=== PATIENT | male | born 1995 | race Caucasian/White ===

== ENCOUNTER 2024-10-13 17:09 | Emergency (ER) | payer BC, SELFPAY ==
[2024-10-13 17:23] VITALS: BP 119/80
[2024-10-13 18:00] LABS: ALT (SGPT) 28 U/L (0-50); AST (SGOT) 30 U/L (17-59); Albumin 4.8 g/dl (3.5-5.0); Alkaline Phosphatase 54 U/L (38-126); Calcium 9.5 mg/dl (8.4-10.2); Carbon Dioxide 33 mmol/L (22-30); Chloride 104 mmol/L (98-107); Glucose 105 mg/dl (70-99); Lipase 50 U/L (23-300); Potassium 4.6 mmol/L (3.5-5.1); Sodium 139 mmol/L (135-145); Total Bilirubin 1.4 mg/dl (0.2-1.3); Total Protein 7.8 g/dl (6.3-8.2)
[2024-10-13 18:03] LABS: % Lymphocytes 6.6 % (20.5-51.1); % Neutrophils 66.9 % (42.2-75.2); Hematocrit 47.3 % (39.0-52.0); Hemoglobin 16.9 g/dL (13.0-18.0); Mean Corp Hgb Conc. 35.7 g/dL (33.0-37.0); Mean Corpuscular Hgb 31.5 pg (27.0-31.0); Mean Corpuscular Volume 88.1 fL (80.0-94.0); Mean Platelet Volume 9.8 fL (7.4-10.4); Platelet Count 211 10^3/uL (130-400); Red Blood Cell Count 5.37 10^6/uL (4.70-6.10); White Blood Cell Count 11.1 10^3/uL (4.8-10.8)
[2024-10-13 18:04] LABS: % Basophils 0.7 % (0-2); % Eosinophils 17.7 % (0-6); % Immature Granulocytes 0.4 % (0-0.5); % Monocytes 7.7 % (1.7-9.3); Absolute Basophils 0.1 10^3/uL (0-0.2); Absolute Immature Granulocytes 0.1 10^3/uL (0-0.05); Absolute Lymphocytes 0.7 10^3/uL (1.2-3.4); Absolute Monocytes 0.9 10^3/uL (0.1-0.6); Absolute Neutrophils 7.4 10^3/uL (1.4-6.5); Nucleated Red Blood Cells % 0 % (-)
[2024-10-13 18:10] LABS: Blood Urea Nitrogen 20 mg/dl (9-20); eGFR > 60.00
--- NOTE | 2024-10-13 20:15 | ED.GENMED ---
History of Present Illness
General
Chief Complaint: Abdominal Pain
Time Seen by Provider: 10/13/24 20:15
History of Present Illness
History of Present Illness:
TIME OF INITIAL ENCOUNTER: 8:15 PM
HPI: The patient presents with abdominal discomfort described as diffuse. This had been associated with nausea. Today he had more significant vomiting and diarrhea. He has a history of migraines and recently had his amitriptyline increased from
30 mg to 40 mg. His symptoms seem to start around the increase in this dose. He contacted his doctors and they did agree for him to go back down on the dose now.
EXAM:
GENERAL: Well appearing in no distress, athletic build, healthy in appearance
HEENT: Moist oral mucosa
CARDIOVASCULAR: No murmurs, normal heart rate, regular rhythm, No chest wall tenderness
PULMONARY: No respiratory distress, breath sounds are clear and equal
ABDOMEN: Soft with no peritoneal signs, no tenderness
NEUROLOGIC: Excellent strength all extremities, no coordination deficits
PSYCHIATRIC: Appropriate mental status, normal insight and judgement
EXTREMITIES: Nontender, no edema, moves all extremities equally
SKIN: No rash, no lesions
NUMBER AND COMPLEXITY OF PROBLEMS ADDRESSED AT THE ENCOUNTER
� Chronic conditions affecting care: Migraines
� Acute Exacerbation and/or Progression of Chronic Illness: This is an acute problem
� Differential Diagnosis includes: Viral syndrome, mesenteric adenitis, epiploic appendagitis, gastroenteritis, colitis
AMOUNT AND/OR COMPLEXITY OF DATA TO BE REVIEWED AND ANALYZED
� I performed an independent evaluation of and my interpretation is:
EKG:
CT: CT imaging consistent with gastroenteritis
X-rays:
Laboratory Studies: White count 11.1, hemoglobin normal, chemistries unremarkable, lipase normal
Other:
� Review of other/old records: The patient had physical therapy in 2010
� Clinical information was obtained by an independent historian: I spoke to mother at bedside
� Prescriptions/Medications Considered but not given:
� Further testing considered but not performed:
RISK OF COMPLICATIONS AND/OR MORBIDITY OR MORTALITY OF PATIENT MANAGEMENT
� Social determinants of health affecting care: Lives at home
� Discussion with other providers:
� Escalation of care including admission/observation vs risk of discharge considered: The patient reports rather significant pain to the point that he can barely eat or drink now. He has had vomiting and diarrhea today. Will
give IV fluids to ensure hydration however lab work is relatively unremarkable. Given the reported rather significant pain, will obtain CT imaging for further evaluation.
ANY OTHER UPDATES:
10:55 PM: BPs have been running low. Will give an additional bag of fluid however the patient is very well-appearing and overall feels improved. He is mentating very well and is very well-appearing at time of discharge. Of note he is on
propranolol.
Phy Exam
Physical Exam
Physical Exam:
See HPI
Course
Orders/Labs/Results
Orders:
Orders
10/13/24 17:35
Complete Blood Count/With Diff Urgent
Comprehensive Metabolic Panel Urgent
Lipase Urgent
10/13/24 20:20
0.9% Sodium Chloride 1000 ml [Nss] 1,000 ml IV BOLUS
Ondansetron Injectable [Zofran] 4 mg IV NOW STA
10/13/24 20:21
CT Abd/pelvis W Iv Cont Urgent
Comment:
Reason For Exam: diffuse severe abd pain; V/D
Ketorolac [Toradol] 15 mg IV NOW STA
10/13/24 22:53
NSS 1000mL Bolus WIDE OPEN 0.9% Sodium Chloride 1000 ml [Nss] 1,000 ml IV BOLUS
Abnormal Lab Results
10/13/24
17:35
WBC 11.1 H 10^3/uL
(4.8-10.8)
MCH 31.5 H pg
(27.0-31.0)
Abs Immat Gran (auto) 0.1 H 10^3/uL
(0-0.05)
Absolute Neuts (auto) 7.4 H 10^3/uL
(1.4-6.5)
Absolute Lymphs (auto) 0.7 L 10^3/uL
(1.2-3.4)
Absolute Monos (auto) 0.9 H 10^3/uL
(0.1-0.6)
Absolute Eos (auto) 2.0 H 10^3/uL
(0-0.7)
Lymphocytes % 6.6 L %
(20.5-51.1)
Eosinophils % 17.7 H %
(0-6)
Carbon Dioxide 33 H mmol/L
(22-30)
Glucose 105 H mg/dl
(70-99)
Total Bilirubin 1.4 H mg/dl
(0.2-1.3)
10/13/24 17:35
10/13/24 17:35
Vital Signs
Initial and Last Documented VS:
Initial Vital Signs
Temp Pulse Resp BP Pulse Ox
36.3 C 69 18 119/80 99
10/13/24 17:23 10/13/24 17:23 10/13/24 17:23 10/13/24 17:23 10/13/24 17:23
Last Documented Vital Signs
Temp Pulse Resp BP Pulse Ox
36.3 C 65 18 95/54 96
10/13/24 17:23 10/13/24 22:18 10/13/24 22:18 10/13/24 22:28 10/13/24 22:45
*Critical Care Note
Total Time (30-74mins, 75-104mins- exclusive of procedures): Not Applicable
ED Attending Note
-
Portions of this chart may have been created with voice recognition software.� Occasional wrong word or��sound alike� substitutions may have occurred due to the inherent limitations of voice recognition software.
Discharge Plan
Departure
Referrals:
Samira Betts PA [Family Provider, Family Practice]
Interventions
Interventions:
*Risk Screen - Suicide Last Done: 10/13/24 17:23
*General Assessment Last Done: 10/13/24 17:23
*Neglect/Abuse Screening Last Done: 10/13/24 20:27
*ED- Fall Risk Assessment Last Done: 10/13/24 20:27
*ED COVID-19 Vaccine History Last Done: 10/13/24 20:27
LD-Pswyol-Msetnmtram Assessment Last Done: 10/13/24 20:27
Discharge Date and Time
Print Language: KENYAN
[2024-10-13] MEDS: ZOFRAN 4 MG IV (20:34)
[2024-10-13] MEDS: TORADOL 15 MG IV (20:34)
[2024-10-13] MEDS: NSS 1000 IV ×2 (20:34→22:55)
[2024-10-13 20:37] VITALS: BP 96/78
[2024-10-13 22:28] VITALS: BP 95/54
[2024-10-13 23:01] VITALS: BP 108/57
[2024-10-13 23:41] VITALS: BP 103/64
== END 2024-10-13 23:48 | disposition home or self-care (01) ==
LOC: EMR 17:09
PROVIDERS: Student in an Organized Health Care Education/Training Program; EMERGENCY PHYSICIAN Emergency Medicine; FAMILY PHYSICIAN Physician Assistant Medical
DX: K52.9 Noninfective gastroenteritis and colitis, unspecified (principal)
CPT/HCPCS: 96374; 96375; 96361; 99284; 74177; 80053; 83690; 85025; Q9967